=== PATIENT | female | born 1980 | race Two or more races ===

== ENCOUNTER → 2019-09-01 | Outpatient (CLI) | payer OTHER | END | disposition home or self-care (01) | LOC: MAMO-SONO 11:15 | DX: N64.4 Mastodynia (principal); Z12.31 Encounter for screening mammogram for malignant neoplasm of breast; Z87.898 Personal history of other specified conditions ==

== ENCOUNTER 2021-11-21 09:00 | Outpatient (CLI) | payer OTHER | END 2021-11-21 09:15 | disposition home or self-care (01) | LOC: PPH VACUNA 09:00 | PROVIDERS: ATTEND Emergency Medicine Pediatric Emergency Medicine | DX: Z23 Encounter for immunization (principal) ==

== ENCOUNTER 2022-11-18 16:17 | Emergency (ER) | payer OTHER ==
[~2022-11-18] VITALS: Ht 160 cm; Wt 49.9 kg
== END 2022-11-18 21:13 | disposition home or self-care (01) ==
LOC: ER 16:17
DX: F41.0 Panic disorder [episodic paroxysmal anxiety] (principal); F41.9 Anxiety disorder, unspecified

== ENCOUNTER 2023-04-22 10:02 | Inpatient (IN) | payer OTHER ==
[~2023-04-22] VITALS: Ht 154.9 cm; Wt 79.4 kg
[2023-04-23] MEDS ORDERED: EFFEXOR XR150 MG PO (08:05)
[2023-04-23] MEDS ORDERED: ATIVAN1 M1 (08:33)
[2023-04-29] MEDS ORDERED: ESTAZOLAM2 MG (10:48)
[2023-04-29] MEDS ORDERED: MIRTAZAPINE15 MG (10:49)
[2023-04-29] MEDS ORDERED: TOPIRAMATE100 MG (10:49)
[2023-04-29] MEDS ORDERED: MEDROLPACK PO (12:43)
[2023-04-29] MEDS ORDERED: COLACE100 MG PO (12:43)
[2023-04-29] MEDS ORDERED: PERCOCET 5-3251 EACH PO (12:43)
== END 2023-04-30 13:46 | disposition home or self-care (01) | DRG 473 ==
LOC: SURH 04-29 07:00 → O/R 04-29 09:37 → PED 04-29 17:50
PROVIDERS: ADMIT Orthopaedic Surgery Orthopaedic Surgery of the Spine; ATTEND Orthopaedic Surgery Orthopaedic Surgery of the Spine
PROC: 0RG10J0 Fusion of Cervical Vertebral Joint with Synthetic Substitute, Anterior Approach, Anterior Column, Open Approach (ICD-10-PCS; principal; 2023-04-29 07:00)
DX: M50.022 Cervical disc disorder at C5-C6 level with myelopathy (principal); M50.13 Cervical disc disorder with radiculopathy, cervicothoracic region